=== PATIENT | female | born 1945 | race Caucasian/White ===

== ENCOUNTER 2018-07-31 07:36 | Outpatient (CLI) | payer OTHER ==
[~2018-07-31 07:36] MED LIST: AMLODIPINE BES2.5 MG PO; ATORVASTATIN CA10 MG PO; ELIQUIS2.5 MG PO; LOSARTAN-HCTZ1 EAC1 PO; PANTOPRAZOLE SO40 MG PO; TOPROL XL100 M1 PO
== END 2018-07-31 07:48 | disposition home or self-care (01) ==
LOC: TOM 07:36
DX: R41.2 Retrograde amnesia (principal); R10.9 Unspecified abdominal pain

== ENCOUNTER → 2020-01-06 08:50 | Outpatient (CLI) | payer OTHER | END | disposition home or self-care (01) | LOC: LAB 08:50 | PROVIDERS: ATTEND Internal Medicine Cardiovascular Disease | DX: E78.49 Other hyperlipidemia (principal); R10.84 Generalized abdominal pain; D64.89 Other specified anemias; I48.91 Unspecified atrial fibrillation; F41.8 Other specified anxiety disorders; I50.30 Unspecified diastolic (congestive) heart failure; E11.9 Type 2 diabetes mellitus without complications; R80.8 Other proteinuria; R05 Cough; R50.9 Fever, unspecified; R06.2 Wheezing ==

== ENCOUNTER 2020-09-15 08:17 | Outpatient (CLI) | payer OTHER | END 2020-09-15 08:19 | disposition home or self-care (01) | LOC: LAB 08:17 | PROVIDERS: ATTEND Internal Medicine Cardiovascular Disease | DX: I10 Essential (primary) hypertension (principal); E11.9 Type 2 diabetes mellitus without complications; E03.8 Other specified hypothyroidism; E78.2 Mixed hyperlipidemia; Z12.11 Encounter for screening for malignant neoplasm of colon; E55.9 Vitamin D deficiency, unspecified ==

== ENCOUNTER → 2020-09-16 12:08 | Outpatient (CLI) | payer OTHER | END | disposition home or self-care (01) | LOC: LAB 12:08 | PROVIDERS: ATTEND Internal Medicine Cardiovascular Disease | DX: E78.2 Mixed hyperlipidemia (principal); I10 Essential (primary) hypertension; E11.9 Type 2 diabetes mellitus without complications; E03.8 Other specified hypothyroidism; Z12.11 Encounter for screening for malignant neoplasm of colon; E55.9 Vitamin D deficiency, unspecified ==

== ENCOUNTER 2021-10-08 11:56 | Emergency (ER) | payer OTHER ==
[~2021-10-08] VITALS: Ht 149.9 cm; Wt 47.2 kg
[2021-10-08] MEDS ORDERED: ELIQUIS5 MG PO (12:01)
== END 2021-10-08 15:48 | disposition home or self-care (01) ==
LOC: ER 11:56
DX: U07.1 COVID-19 (principal); E86.0 Dehydration; I10 Essential (primary) hypertension; Z88.6 Allergy status to analgesic agent; Z79.02 Long term (current) use of antithrombotics/antiplatelets

== ENCOUNTER 2021-10-10 10:20 | Outpatient (CLI) | payer OTHER ==
[~2021-10-10 10:20] MED LIST changes: +ELIQUIS5 MG PO
== END 2021-10-10 11:00 | disposition home or self-care (01) ==
LOC: LAB 10:20
PROVIDERS: ATTEND Emergency Medicine
DX: U07.1 COVID-19 (principal)